=== PATIENT | male | born 1970 | race American Indian/Alaskan Native ===

== ENCOUNTER 2021-12-03 11:27 | Emergency (ER) | payer OTHER ==
--- NOTE | 2021-12-03 13:38 | XRay Report ---
CHEST 2 VIEWS INDICATION / CLINICAL INFORMATION: Chest Pain. COMPARISON: None available. FINDINGS: SUPPORT DEVICES: None. HEART / MEDIASTINUM: No significant abnormality. LUNGS / PLEURA: No significant pulmonary or pleural abnormality. No pneumothorax. ADDITIONAL FINDINGS: No significant additional findings. IMPRESSION: 1. No acute findings. Signer Name: Yandel Swan MD Signed: 12/03/2021 1:34 PM Workstation Name: [id number]
[2021-12-03 14:34] LABS: Basophils % (Auto) 0.3 % (0.0-1.8); Eosinophils # (Auto) 0.1 K/mm3 (0.0-0.4); Eosinophils % (Auto) 2.3 % (0.0-4.3); Hematocrit 40.7 % (35.5-45.6); Hemoglobin 13.7 gm/dl (11.8-15.2); Lymphocytes # (Auto) 2.5 K/mm3 (1.2-5.4); Lymphocytes % (Auto) 40.1 % (13.4-35.0); Mean Corpuscular HGB Conc 34 % (32-34); Mean Corpuscular Volume 90 fl (84-94); Monocytes # (Auto) 0.6 K/mm3 (0.0-0.8); Monocytes % (Auto) 8.9 % (0.0-7.3); Platelet Count 233 K/mm3 (140-440); Red Blood Count 4.54 M/mm3 (3.65-5.03); Red Cell Distribution Width 14.2 % (13.2-15.2)
[2021-12-03 15:01] LABS: Alanine Aminotransferase 11 units/L (7-56); Albumin 4.7 g/dL (3.9-5); BUN/Creatinine Ratio 13; Blood Urea Nitrogen 12 mg/dL (9-20); Calcium 9.4 mg/dL (8.4-10.2); Hemolysis Index 7
[2021-12-03 17:21] VITALS: BP 152/74
--- NOTE | 2021-12-03 17:21 | Emergency Department Report ---
ED General Adult HPI - General Chief complaint: Medical Clearance Stated complaint: ODOR FROM BODY Source: patient Mode of arrival: Ambulatory Limitations: No Limitations - History of Present Illness Initial comments: Patient is a 51-year-old male with no past medical history presents to the ED with complaint of acute onset persistent diffuse malodorous body smell for the last 1 week. Patient states that the only thing that he remembers that he did was change the body wash liquid soap about a week ago. Patient denies dizziness, syncope, chest pain, shortness of breath, nausea and vomiting, fever, chills, swollen lips or tongue, dysphagia or dysphonia, itching rash, headache, dysuria, urinary frequency and urgency, hematuria, diarrhea, abdominal pain or cough. MD Complaint: Uncomfortable body odors -: week(s) (1) Radiation: non-radiation Severity scale (0 -10): 0 Improves with: none Worsens with: none Associated Symptoms: denies other symptoms. denies: confusion, chest pain, cough, diaphoresis, fever/chills, headaches, loss of appetite, malaise, nausea/vomiting, rash, syncope, weakness, other Treatments Prior to Arrival: none - Related Data Allergies Allergy/AdvReac Type Severity Reaction Status Date / Time pollen extracts Allergy Itching Verified 12/03/21 12:40 ED Review of Systems ROS: Stated complaint: ODOR FROM BODY Other details as noted in HPI Constitutional: malaise, other (diffuse malodorous body odours). denies: chills, fever Eyes: denies: eye pain, eye discharge, vision change ENT: denies: ear pain, throat pain Respiratory: denies: cough, shortness of breath, wheezing Cardiovascular: denies: chest pain, palpitations Endocrine: no symptoms reported Gastrointestinal: denies: abdominal pain, nausea, vomiting, diarrhea Genitourinary: denies: urgency, dysuria, frequency, hematuria, discharge, testicular pain, testicular mass Musculoskeletal: denies: back pain, joint swelling, arthralgia Skin: denies: rash, lesions Neurological: denies: headache, weakness, paresthesias Psychiatric: anxiety. denies: depression Hematological/Lymphatic: denies: easy bleeding, easy bruising ED Past Medical Hx - Past Medical History Previous Medical History?: No - Surgical History Past Surgical History?: No ED Physical Exam - General Limitations: No Limitations General appearance: alert, in no apparent distress - Head Head exam: Present: atraumatic, normocephalic, normal inspection - Eye Eye exam: Present: normal appearance, PERRL, EOMI Pupils: Present: normal accommodation - ENT ENT exam: Present: normal exam, normal orophraynx, mucous membranes moist, TM's normal bilaterally, normal external ear exam - Neck Neck exam: Present: normal inspection, full ROM. Absent: tenderness - Respiratory Respiratory exam: Present: normal lung sounds bilaterally. Absent: respiratory distress, wheezes, rales, rhonchi, stridor, chest wall tenderness, accessory muscle use, decreased breath sounds, prolonged expiratory - Cardiovascular Cardiovascular Exam: Present: regular rate, normal rhythm, normal heart sounds. Absent: systolic murmur, diastolic murmur, rubs, gallop - GI/Abdominal GI/Abdominal exam: Present: soft, normal bowel sounds. Absent: distended, tenderness, guarding, rebound, hypoactive bowel sounds, organomegaly, mass, bruit - Extremities Exam Extremities exam: Present: normal inspection, full ROM, normal capillary refill - Back Exam Back exam: Present: normal inspection, full ROM. Absent: tenderness, CVA tenderness (R), CVA tenderness (L), muscle spasm, paraspinal tenderness, vertebral tenderness - Neurological Exam Neurological exam: Present: alert, oriented X3, CN II-XII intact, normal gait, reflexes normal - Psychiatric Psychiatric exam: Present: normal affect, normal mood, anxious - Skin Skin exam: Present: warm, dry, intact, normal color. Absent: rash ED Course Vital Signs 12/03/21 12:34 Temperature 98.3 F Pulse Rate 65 Respiratory 20 Rate Blood Pressure 133/85 [Right] O2 Sat by Pulse 100 Oximetry ED Medical Decision Making - Lab Data Result diagrams: 12/03/21 13:38 12/03/21 13:38 - Radiology Data Radiology results: report reviewed, image reviewed [facility] [address] [place] [address] XRay Report Signed Patient: KULDIP LITTLE JR MR#: [id number] : 1970 Acct:[id number] Age/Sex: 51 / M ADM Date: 12/03/21 Loc: ED Attending Dr: Ordering Physician: ANABELLA POOLE Date of Service: 12/03/21 Procedure(s): XR chest routine 2V Accession Number(s): [id number] cc: ANABELLA Velasquez Time In Minutes: CHEST 2 VIEWS INDICATION / CLINICAL INFORMATION: Chest Pain. COMPARISON: None available. FINDINGS: SUPPORT DEVICES: None. HEART / MEDIASTINUM: No significant abnormality. LUNGS / PLEURA: No significant pulmonary or pleural abnormality. No pneumothorax. ADDITIONAL FINDINGS: No significant additional findings. IMPRESSION: 1. No acute findings. Signer Name: Yandel Swan MD Signed: 12/03/2021 1:34 PM Workstation Name: [id number] Transcribed By: TL Dictated By: Yandel Swan MD Electronically Authenticated By: Yandel Swan MD Signed Date/Time: 12/03/211333 DD/ 32 TD/TT: - Medical Decision Making This is a 51-year-old male with no past medical history presents to the ED with complaint of acute onset persistent diffuse malodorous body smell for the last 1 week. Patient states that the only thing that he remembers that he did was change the body wash liquid soap about a week ago. In the ED, patient is alert and oriented x3 and is not in any distress. All lab test results were reviewed and are all nonactionable. Chest x-ray showed no acute cardiopulmonary abnorma lities or pneumonitis. Therefore follow-up with your primary care physician in 5 to 7 days for reevaluation or return to the ED immediately if symptoms get worse. - Differential Diagnosis anxiety; dehydration; syncope; seizures; schizophrenia Critical care attestation.: If time is entered above; I have spent that time in minutes in the direct care of this critically ill patient, excluding procedure time. ED Disposition Clinical Impression: Abnormal body odor, Anxiety as acute reaction to exceptional stress Disposition: 01 HOME / SELF CARE / HOMELESS Is pt being admited?: No Does the pt Need Aspirin: No Condition: Stable Instructions: Generalized Anxiety Disorder, Adult Additional Instructions: All lab test results were reviewed and are all nonactionable. Chest x-ray showed no acute cardiopulmonary abnormalities or pneumonitis. Therefore follow- up with your primary care physician in 5 to 7 days for reevaluation. Return to the ED immediately if symptoms get worse. Referrals: [facility] [Provider Group] - 3-5 Days Time of Disposition: 17:21 Print Language: URDU
--- NOTE | 2021-12-05 17:18 | Electrocardiograph Report ---
[facility] Test Date: 2021-12-03 Test Time: 13:12:42 Pat Name: KULDIP LITTLE Department: Room: Gender: M Bag Loader: NURSE : 1970 Requested By: ANABELLA POOLE Order Number: [id number] Reading MD: Elke Albert Measurements Intervals [place] Rate: 61 P: -34 CO: 146 QRS: -7 QRSD: 112 T: -3 QT: 451 QTc: 455 Interpretive Statements Sinus rhythm Probable left ventricular hypertrophy ST elev, probable normal early repol pattern No previous ECG available for comparison Electronically Signed On 12-05-2021 17:18:06 EDT by Elke Albert
== END 2021-12-03 18:11 | disposition home or self-care (01) ==
LOC: ED 11:27
DX: L75.0 Bromhidrosis (principal); F41.1 Generalized anxiety disorder; F43.0 Acute stress reaction; Z91.09 Other allergy status, other than to drugs and biological substances
CPT/HCPCS: 36415; 71046; 80053; 82550; 82962; 84484; 85025; 93005; 99283; 99284